=== PATIENT | female | born 1950 | race Caucasian/White ===

== ENCOUNTER 2018-04-28 07:16 | Day surgery (SDC) | payer BC ==
[~2018-04-28 07:16] MED LIST: KETOROLAC TROMETHAMINE 0.45% 4 DROP/0.4 ML DROPERETTE OS PRN
[2018-04-28] MEDS ORDERED: EPINEPHRINE INJ/PF 1 MG/1 ML AMPULE ONE (08:02)
[2018-04-28] MEDS ORDERED: LIDOCAINE 1%/PHENYLEPHRINE 1.5% 1 ML VIAL ONE (08:03)
[2018-04-28] MEDS ORDERED: CHONDR SU A NA/HYALUR INTRAOC KIT (SURGICARE) ONE (08:03)
[2018-04-28] MEDS: CYCLOPENTOLATE 0.2%/PHENYLEPHRINE 1% OPH SOLN 2 ML OS PRN ×3 (08:17→08:31)
[2018-04-28] MEDS: TROPICAMIDE 1% OPH SOLN 3 ML OS PRN ×3 (08:17→08:31)
[2018-04-28] MEDS: BESIFLOXACIN HCL 0.6% OPH SUSP 5 ML BOTTLE OS PRN ×4 (08:18→08:54)
[2018-04-28] MEDS: TETRACAINE HCL 0.5% OPH SOLN 4 ML OS PRN ×2 (08:19→08:32)
[2018-04-28] MEDS ORDERED: MIDAZOLAM 2 MG/2 ML INJ ONE (08:21)
[2018-04-28] MEDS ORDERED: FENTANYL CITRATE INJ/PF 100 MCG/2 ML AMPUL ONE (08:22)
[2018-04-28] MEDS: DORZOLAMIDE HCL 2%/TIMOLOL MALEAT 0.5% OPH SOLN 10 ML OS PRN ×2 (08:54)
--- NOTE | 2018-04-28 20:18 | [facility] OPERATIVE REPORT E ---
[facility] Operative Report NAME: VERNA ABEBE AGE: 68Y DATE OF SURGERY: 04/28/2018 ROOM: PREOPERATIVE DIAGNOSIS: CATARACT, LEFT EYE. POSTOPERATIVE DIAGNOSIS: CATARACT, LEFT EYE. OPERATION: Cataract extraction with insertion of an IOL of the left eye. SURGEON: TAINA BELCHER M.D. ANESTHESIA: Topical. PROCEDURE: After obtaining appropriate consent, the patient's left eye was prepped and draped in sterile fashion as well as the surgeon in a sterile manner and cataract surgery was started. First a paracentesis blade was used to make a side-port incision. Viscoelastic was used to inflate the anterior chamber. Next a 2.4 mm incision was made with a 2.4 mm blade, clear corneal temporally. A continuous capsulorrhexis was made using a cystotome and Utrata forceps. Following this hydrodissection was carried out to make the lens fully loose and mobile and it was rotated 90 degrees. Following this, a psposs-yug-oilxlze technique was used to phacoemulsify the lens with a CDE of 22.27. The remaining cortex was removed with irrigation/aspiration. Provisc was instilled into the capsular bag to inflate the bag. A SN60WF, 21.5 diopter lens was placed. The remaining viscoelastic material was removed with irrigation/aspiration. Following this, the incision was found to be watertight. Besivance was instilled into the eye and a protective shield was placed over the eye. The patient returned to the postoperative recovery in stable condition. DICTATING PHYSICIAN: TAINA BELCHER M.D. 1209M 2012 PHY#: [id number] ID: [id number] JOB#: [id number] ACCT: [id number] cc:TAINA BELCHER M.D. >
--- NOTE | 2018-04-28 20:18 | [facility] DISCHARGE SUMMARY E ---
[facility] Discharge Summary NAME: VERNA ABEBE AGE: 68Y ADMITTED: 04/28/2018 DISCHARGED: 04/28/2018 DIAGNOSIS: Cataract, left eye. SUMMARY: This is a 68-year-old female who underwent cataract extraction, left eye. She underwent surgery because she was having difficulty seeing road signs at night. DISCHARGE INSTRUCTIONS: She should be on a regular diet, no bending at her waist, and no heavy lifting. She should use her Vigamox, Ilevro, and Pred Forte at 3 p.m. and 8 p.m. and sleep with a rigid shield. I will see her for her 1 day postoperative tomorrow. DICTATING PHYSICIAN: TAINA BELCHER M.D. 1209M 2014 PHY#: [id number] ID: [id number] JOB#: [id number] ACCT: [id number] cc:TAINA BELCHER M.D. >
== END 2018-04-28 09:32 | disposition home or self-care (01) ==
LOC: SC 07:16
PROVIDERS: ATTEND Internal Medicine
DX: H25.13 Age-related nuclear cataract, bilateral (principal); E07.9 Disorder of thyroid, unspecified
CPT/HCPCS: 66984; V2632; J2250; J3490 ×2; J0171; J3010; J2370; 142

== ENCOUNTER 2018-05-17 07:46 | Day surgery (SDC) | payer BC ==
[~2018-05-17 07:46] MED LIST changes: +KETOROLAC TROMETHAMINE 0.45% 4 DROP/0.4 ML DROPERETTE OD PRN; -KETOROLAC TROMETHAMINE 0.45% 4 DROP/0.4 ML DROPERETTE OS PRN
[2018-05-17] MEDS ORDERED: EPINEPHRINE INJ/PF 1 MG/1 ML AMPULE ONE (08:13)
[2018-05-17] MEDS ORDERED: CHONDR SU A NA/HYALUR INTRAOC KIT (SURGICARE) ONE (08:13)
[2018-05-17] MEDS ORDERED: LIDOCAINE 1%/PHENYLEPHRINE 1.5% 1 ML VIAL ONE (08:13)
[2018-05-17] MEDS: TROPICAMIDE 1% OPH SOLN 3 ML OD PRN ×3 (08:30→08:55)
[2018-05-17] MEDS: BESIFLOXACIN HCL 0.6% OPH SUSP 5 ML BOTTLE OD PRN ×4 (08:30→09:21)
[2018-05-17] MEDS: CYCLOPENTOLATE 0.2%/PHENYLEPHRINE 1% OPH SOLN 2 ML OD PRN ×3 (08:30→08:55)
[2018-05-17] MEDS: TETRACAINE HCL 0.5% OPH SOLN 4 ML OD PRN ×3 (08:30→08:55)
[2018-05-17] MEDS ORDERED: MIDAZOLAM 2 MG/2 ML INJ ONE (08:42)
[2018-05-17] MEDS ORDERED: FENTANYL CITRATE INJ/PF 100 MCG/2 ML AMPUL ONE (08:42)
[2018-05-17] MEDS: DORZOLAMIDE HCL 2%/TIMOLOL MALEAT 0.5% OPH SOLN 10 ML OD PRN ×2 (09:21)
--- NOTE | 2018-05-17 11:39 | [facility] DISCHARGE SUMMARY E ---
[facility] Discharge Summary NAME: VRENA ABEBE AGE: 68Y ADMITTED: 05/17/2018 DISCHARGED: 05/17/2018 DIAGNOSIS: CATARACT, RIGHT EYE. SUMMARY: This is a 68-year-old female who underwent cataract extraction, right eye. She underwent surgery because she was having difficulty with words on the television. DISCHARGE INSTRUCTIONS: She should be on a regular diet, no bending at her waist, and no heavy lifting. She should use her Vigamox, Prolensa, and Pred Forte at 3 p.m. and 8 p.m. and sleep with a rigid shield. I will see her for her 1-day postoperative tomorrow. DICTATING PHYSICIAN: TAINA BELCHER M.D. 1209M 1136 PHY#: [id number] ID: [id number] JOB#: [id number] ACCT: [id number] cc:TAINA BELCHER M.D. >
--- NOTE | 2018-05-17 11:39 | [facility] OPERATIVE REPORT E ---
[facility] Operative Report NAME: VERNA ABEBE AGE: 68Y DATE OF SURGERY: 05/17/2018 ROOM: PREOPERATIVE DIAGNOSIS: CATARACT, RIGHT EYE. POSTOPERATIVE DIAGNOSIS: CATARACT, RIGHT EYE. OPERATION: Cataract extraction with insertion of an IOL of the right eye. SURGEON: TAINA BELCHER M.D. ANESTHESIA: Topical. PROCEDURE: After obtaining appropriate consent, the patient's right eye was prepped and draped in sterile fashion as well as the surgeon in a sterile manner and cataract surgery was started. First a paracentesis blade was used to make a side-port incision. Viscoelastic was used to inflate the anterior chamber. Next a 2.4 mm incision was made with a 2.4 mm blade, clear corneal temporally. A continuous capsulorrhexis was made using a cystotome and Utrata forceps. Following this hydrodissection was carried out to make the lens fully loose and mobile and it was rotated 90 degrees. Following this, a dswvli-qer-qpfrdcr technique was used to phacoemulsify the lens with a CDE of 20.53. The remaining cortex was removed with irrigation/aspiration. Provisc was instilled into the capsular bag to inflate the bag. A SN60WF, 21.5 diopter lens was placed. The remaining viscoelastic material was removed with irrigation/aspiration. Following this, the incision was found to be watertight. Besivance was instilled into the eye and a protective shield was placed over the eye. The patient returned to the postoperative recovery in stable condition. DICTATING PHYSICIAN: TAINA BELCHER M.D. 1209M 1135 PHY#: [id number] ID: [id number] JOB#: [id number] ACCT: [id number] cc:TAINA BELCHER M.D. >
== END 2018-05-17 10:09 | disposition home or self-care (01) ==
LOC: SC 07:46
PROVIDERS: ATTEND Internal Medicine
DX: H25.11 Age-related nuclear cataract, right eye (principal); Z96.1 Presence of intraocular lens; E07.9 Disorder of thyroid, unspecified
CPT/HCPCS: 66984; V2632; J2250; J3490 ×2; J0171; J3010; J2370; 142